=== PATIENT | female | born 2005 | race Hispanic/Latino ===

== ENCOUNTER 2023-01-10 10:56 | Emergency (ER) | payer OTHER ==
[~2023-01-10] VITALS: Ht 160 cm; Wt 68.1 kg
[2023-01-10] MEDS ORDERED: IBUPROFEN 400MG TAB PO ONE (13:25)
[2023-01-10] MEDS ORDERED: ACETAMINOPHEN TAB 650MG DOSE (2X325MG) PO ONE (13:25)
[2023-01-10 14:12] VITALS: BP 101/64
== END 2023-01-10 14:23 | disposition home or self-care (01) ==
LOC: M ED 10:56
DX: S50.01XA Contusion of right elbow, initial encounter (principal); W19.XXXA Unspecified fall, initial encounter; Y92.89 Other specified places as the place of occurrence of the external cause; Y93.89 Activity, other specified; Y99.1 Military activity; Z88.8 Allergy status to other drugs, medicaments and biological substances